=== PATIENT | female | born 2000 | race Caucasian/White ===

== ENCOUNTER 2020-12-08 22:22 | Emergency (ER) | payer SELFPAY ==
[~2020-12-08] VITALS: Ht 165.1 cm; Wt 66.8 kg
[2020-12-08 23:24] LABS: BASOPHILS # (AUTO) 0.1 X10'3 (0-0.2); BASOPHILS % (AUTO) 0.7 % (0-1); EOSINOPHILS % (AUTO) 0 % (0-6); HEMOGLOBIN 14.2 g/dl (12.0-16.0); LYMPHOCYTES % (AUTO) 11.8 % (21-51); MEAN CORPUSCULAR HEMOGLOBIN 32.6 PG (27.0-31.0); MEAN CORPUSCULAR VOLUME 98.5 FL (78-98); MEAN PLATELET VOLUME 9.3 FL (7.4-10.4); MONOCYTES # (AUTO) 0.6 X10'3 (0-0.9); NEUTROPHILS # (AUTO) 6.8 X10'3 (1.8-7.7); NEUTROPHILS % (AUTO) 80.5 % (42-75); PLATELET COUNT 236 X10'3 (140-440); RED BLOOD COUNT 4.36 X10'6 (4.20-5.60); RED CELL DISTRIBUTION WIDTH 12.6 % (11.5-14.5); WHITE BLOOD COUNT 8.4 X10'3 (4.5-11.0)
[2020-12-08 23:36] LABS: ALANINE AMINOTRANSFERASE 18 U/L (12-78); ALBUMIN 4.4 G/DL (3.4-5.0); ALBUMIN/GLOBULIN RATIO 1.4 (1.1-1.5); ALKALINE PHOSPHATASE 74 IU/L (20-180); ANION GAP 12 (8-16); ASPARTATE AMINO TRANSFERASE 16 U/L (10-37); BILIRUBIN,TOTAL 2.6 MG/DL (0.1-1.0); BLOOD UREA NITROGEN 10 MG/DL (7-18); BUN/CREATININE RATIO 10.8 (6.6-38.0); CALCIUM 9.1 MG/DL (8.5-10.1); CHLORIDE 104 MMOL/L (99-107); CREATININE 0.93 MG/DL (0.40-0.90); ETHANOL < 0.010 GM/DL (0.0-0.010); GLUCOSE 98 MG/DL (70-104); POTASSIUM 3.6 MMOL/L (3.5-5.1); SODIUM 141 MMOL/L (135-145); TOTAL CARBON DIOXIDE 25.3 MMOL/L (24-32); TOTAL PROTEIN 7.5 G/DL (6.4-8.2); eGFR 77 ML/MIN
[2020-12-08 23:39] LABS: ACETAMINOPHEN < 2.0 UG/ML (10-30)
--- NOTE | 2020-12-09 00:34 | NUR ---
pt transferred from er bed 15 to overflow bed 25. pt denies any si/sh/hi/avh but states she is feeling "overwhelmed and anxious." pt could not identify a recent trigger. states she is from [place] and is here at [place] for school on a travellers visa. pt has withdrawn and depressed affect. pt is calm and cooperative during assessment. is resting comfortably in her bed and requested a bible. bible given and pt is reading.
[2020-12-09] MEDS ORDERED: NO HOME MEDS (00:36)
[2020-12-09 00:38] LABS: URINE HCG NEGATIVE (NEG)
[2020-12-09 00:43] LABS: URINE AMPHETAMINE SCREEN NEGATIVE (Neg); URINE BARBITUATE SCREEN NEGATIVE (Neg); URINE BENZODIAZEPINES SCREEN NEGATIVE (Neg); URINE CANNABINOID SCREEN NEGATIVE (Neg); URINE COCAINE SCREEN NEGATIVE (Neg); URINE METHADONE SCREEN NEGATIVE (Neg); URINE OPIATE SCREEN NEGATIVE (Neg); URINE PHENCYCLIDINE SCREEN NEGATIVE (Neg)
--- NOTE | 2020-12-09 02:00 | NUR ---
This patient quietly sits in bed in a low fowlers position. Patient is oriented to person, place time, situation is not perfectly clear. Patient is from [facility], she is here on a student visa to study at [email or web address]. The patient denies any medical history. She admits to some depression, feelings of anxiety. "I don't think I quite fit in." Patient states she has had feelings like this for a while. Patient denies S/I, H/I, or any hallucinations. Patient ponders quite often before answering questions. Her affect is flat, her voice is soft. Eye contact is good. The patient is given hot tea. She denies any needs at this time. Patient is cooperative. Hx of recent counceling at her [facility]. A counselor at her [facility] was setting her up for a mental health referral.
--- NOTE | 2020-12-09 03:13 | NUR ---
Patient is sleeping quietly in a mid fowlers position.
--- NOTE | 2020-12-09 04:26 | NUR ---
Patient is sleeping quietly in a low fowlers position. In view from the nursing station.
[2020-12-09 05:58] VITALS: BP 114/74
--- NOTE | 2020-12-09 06:50 | NUR ---
Patient reclining and reading her Bible in bed. No distress observed. Patient told RN that she did not want to eat breakfast. Continue to monitor.
--- NOTE | 2020-12-09 08:14 | NUR ---
Registration speaking with patient. Breakfast is on bedside table. No distress observed. Continue to monitor.
--- NOTE | 2020-12-09 10:20 | NUR ---
[facility] evaluating patient. No distress observed. Continue to monitor.
--- NOTE | 2020-12-09 13:00 | NUR ---
Patient eating lunch. No distress observed. Continue to monitor.
--- NOTE | 2020-12-09 13:52 | NUR ---
Maya franko in [facility] - 12/09/20 at 1511 by [email or web address] Order for behavioral restraints were placed on this patient by mistake.
--- NOTE | 2020-12-09 13:52 | NUR ---
ERROR: this patient never had an order for restraints. It was a mistake.
--- NOTE | 2020-12-09 15:05 | NUR ---
Patient laying supine in bed humming. No distress observed. Continue to monitor.
== END 2020-12-09 16:52 | disposition home or self-care (01) ==
LOC: ER 22:22
DX: Z02.89 Encounter for other administrative examinations (principal); F23 Brief psychotic disorder
CPT/HCPCS: 36415; 80053; 80305; 80320; 80329; 81025; 84443; 85025; 99283; 99285

== ENCOUNTER 2022-01-16 16:51 | Emergency (ER) | payer MEDICAID ==
[~2022-01-16] VITALS: Ht 167.6 cm; Wt 65.9 kg
[~2022-01-16 16:51] MED LIST: NO HOME MEDS
[2022-01-16 17:03] VITALS: BP 167/99
== END 2022-01-16 18:28 | disposition home or self-care (01) ==
LOC: ER 16:52
DX: Z02.89 Encounter for other administrative examinations (principal); H91.93 Unspecified hearing loss, bilateral; H54.7 Unspecified visual loss; H51.22 Internuclear ophthalmoplegia, left eye
CPT/HCPCS: 99281